=== PATIENT | female | born 1970 | race Caucasian/White ===

== ENCOUNTER 2018-01-05 01:14 | Emergency (ER) | payer SELFPAY ==
[~2018-01-05] VITALS: Ht 167.6 cm; Wt 79.4 kg
--- NOTE | 2018-01-05 01:24 | NUR ---
BB SELF C/O "CHEST WALL AND MID BACK PAIN SINCE MIDNIGHT AND TOOK FLEXIRIL AT MIDNIGHT WITHOUT RELIEF" PT AOX3 RR EVEN AND UNLABORED. NO SOB NOTED. NAD NOTED. NO NVD AT THIS TIME. PT GOWNED AND PLACED ON MONITOR WAITING FOR MD VALLE[place].
--- NOTE | 2018-01-05 01:33 | NUR ---
URINE COLLECTED. CALLED LAB FOR AIRPLANE NAVIGATOR.
--- NOTE | 2018-01-05 01:36 | NUR ---
DR. GALLOWAY AT BEDSIDE FOR EVAL.
[2018-01-05] MEDS ORDERED: IBUPROFEN 600 MG TABLET PO ONE ×2 (01:48→02:00)
--- NOTE | 2018-01-05 02:04 | NUR ---
RADIOLOGY AT BEDSIDE FOR CXR
--- NOTE | 2018-01-05 02:23 | NUR ---
Patient discharged to home in stable condition. Written and verbal after care instructions given. Patient verbalizes understanding of instruction. pt ambulatory with a steady gait.
[2018-01-05 02:27] VITALS: BP 115/64
== END 2018-01-05 02:21 | disposition home or self-care (01) ==
LOC: ER 01:16
DX: S29.012A Strain of muscle and tendon of back wall of thorax, initial encounter (principal); R07.89 Other chest pain; F41.9 Anxiety disorder, unspecified; X50.9XXA Other and unspecified overexertion or strenuous movements or postures, initial encounter; Y93.89 Activity, other specified; Y92.89 Other specified places as the place of occurrence of the external cause; Y99.8 Other external cause status
CPT/HCPCS: 71045; 93005; 99284; A4606; Z7610